=== PATIENT | female | born 1950 | race Caucasian/White ===

== ENCOUNTER 2025-02-02 02:24 | Inpatient (IN) | payer OTHER ==
[~2025-02-02] VITALS: Ht 157.5 cm; Wt 48.5 kg
[2025-02-02] VITALS (54 sets, daily range): BP systolic 72–143; BP diastolic 37–104; TEMP 97.1–99; O2SAT 95–98
[2025-02-02] MEDS: IV NS 0.9% 1,000 ML BAG IV ONE (04:05)
[2025-02-02 04:16] LABS: BASOPHILS % (AUTO) 0.4 % (0.0-2.0); EOSINOPHILS % (AUTO) 0.1 % (0.0-6.0); HEMATOCRIT 30 % (33-45); HEMOGLOBIN 9.9 g/dL (11.5-14.8); LYMPHOCYTES # (AUTO) 0.5 K/uL (0.8-4.8); LYMPHOCYTES % (AUTO) 4.2 % (20.0-44.0); MEAN CORPUSCULAR HEMOGLOBIN 31 PG (26.0-33.0); MEAN CORPUSCULAR HGB CONC 34 g/dl (31.0-36.0); MEAN CORPUSCULAR VOLUME 93 fL (82-100); MONOCYTES # (AUTO) 0.6 K/uL (0.1-1.30); MONOCYTES % (AUTO) 5.4 % (2.0-12.0); NEUTROPHILS # (AUTO) 10.7 K/uL (1.8-8.9); NEUTROPHILS % (AUTO) 89.9 % (43.0-81.0); PLATELET COUNT (AUTO) 126 K/uL (150-450); RED BLOOD CELL COUNT(AUTO) 3.19 MIL/uL (4.0-5.2); RED CELL DISTRIBUTION WIDTH 15.9 % (11.5-15.0); WHITE BLOOD COUNT (AUTO) 11.9 K/uL (4.3-11.0)
[2025-02-02 04:23] LABS: INR 1.13 (0.91-1.10); PARTIAL THROMBOPLASTIN TIME 36.4 SEC (24.3-34.3); PROTHROMBIN TIME 11.9 SECS (9.2-11.1)
[2025-02-02 04:24] LABS: CALCIUM, SERUM 8.8 mg/dL (8.5-10.1); CARBON DIOXIDE 18 mmol/L (21-32); CHLORIDE 104 mmol/L (98-107); CREATININE 1.5 mg/dL (0.6-1.3); GLUCOSE 157 mg/dL (74-106); POTASSIUM 3.8 mmol/L (3.5-5.1); SODIUM SERUM 135 mmol/L (136-145); UREA NITROGEN, BLOOD 75 mg/dL (7-18)
[2025-02-02 04:26] LABS: ALANINE AMINOTRANSFERASE 83 U/L (12-78); ALBUMIN 3.1 g/dL (3.4-5.0); ALKALINE PHOSPHATASE 250 U/L (46-116); ASPARTATE AMINOTRANSFERASE 98 U/L (15-37); BILIRUBIN,DIRECT 0.3 mg/dL (0.0-0.2); BILIRUBIN,TOTAL 0.7 mg/dL (0.2-1.0); TOTAL PROTEIN, SERUM 6.7 g/dL (6.4-8.2)
[2025-02-02 04:28] LABS: LACTIC ACID 0.6 mmol/L (0.4-2.0)
[2025-02-02 05:06] LABS: APPEARANCE,URINE SLIGHTLY CLOUDY (CLEAR); BILIRUBIN,URINE NEGATIVE (NEGATIVE); BLOOD, URINE 1+ Ery/uL (NEGATIVE); COLOR,URINE YELLOW (YELLOW); KETONES,URINE NEGATIVE (NEGATIVE); LEUKOCYTE ESTERASE ,URINE 2+ (NEGATIVE); NITRITE, URINE POSITIVE (NEGATIVE); PH,URINE 5.5 (5.0-8.0); PROTEIN,URINE 1+ mg/dl (NEGATIVE); UGLUCOSE NEGATIVE (NEGATIVE); UROBILINOGEN,URINE 0.2 EU/dL (0.2)
[2025-02-02 05:44] LABS: RBC,URINE 0-2 /HPF (0-2)
[2025-02-02 05:45] LABS: ADD URINE CULTURE YES; BACTERIA,URINE Many /HPF (None Seen); SQUAMOUS EPITHELIAL CELL,UR Rare /HPF (None Seen); WBC,URINE TOO NUMEROUS TO COUN /HPF (0-3); YEAST,URINE None Seen /HPF (None Seen)
[2025-02-02] MEDS: IV NS 0.9% 1,000 ML IV ONE (05:51)
[2025-02-02] MEDS ORDERED: PIPERACI/TAZO 3.375GM/D5W 50ML PB IV ONE (05:55)
[2025-02-02] MEDS ORDERED: ACETAMINOPHEN 325 MG TABLET ONE (05:55)
[2025-02-02] MEDS: PIPERACILLIN /TAZOBACTAM 3.375 G in IV D5W 50 ML IV ONE (06:05)
[2025-02-02] MEDS: ACETAMINOPHEN 325 MG TABLET PO ONE (06:06)
[2025-02-02] MEDS ORDERED: NOREPINEPHRINE 8MG/250ML RTU 250 ML IV ONE (07:10)
[2025-02-02] MEDS: NOREPINEPHRINE 8 MG in IV D5W 242 ML IV PRN (07:26)
[2025-02-02] MEDS ORDERED: ONDANSETRON HCL/PF 4 MG/2 ML VIAL IVP PRN (08:30)
[2025-02-02] MEDS ORDERED: NOREPINEPHRINE 8 MG in IV D5W 242 ML IV PRN (08:30)
[2025-02-02] MEDS ORDERED: MAGNESIUM HYDROXIDE 30 ML UDC PO PRN (08:30)
[2025-02-02] MEDS ORDERED: Z GUARD REMEDY 4 OZ OINT TP PRN (08:30)
[2025-02-02] MEDS ORDERED: MAG HYDROX/AL HYDROX/SIMETH 30 ML UDC PO PRN (08:30)
[2025-02-02] MEDS ORDERED: PHENYLEPHRINE 50 MG in IV NS 0.9% 245 ML IV PRN (09:00)
[2025-02-02] MEDS ORDERED: ACETAMINOPHEN 325 MG TABLET PO PRN (09:00)
[2025-02-02] MEDS: IV NS 0.9% 1,000 ML IV PRN (09:03)
[2025-02-02] MEDS: ACETAMINOPHEN 325 MG TABLET PO PRN (09:03)
[2025-02-02] MEDS ORDERED: LATA2.5D15 EACHEYE (09:08)
[2025-02-02] MEDS ORDERED: MULT-447 PO (09:08)
[2025-02-02] MEDS ORDERED: FERR-68 PO (09:08)
[2025-02-02] MEDS ORDERED: ASPI-1169 PO (09:08)
[2025-02-02] MEDS ORDERED: LEVO5DRO6 EACHEYE (09:08)
[2025-02-02] MEDS ORDERED: ALEN70TA80 PO (09:08)
[2025-02-02] MEDS ORDERED: AZEL137S7 BNOSTRILS (09:08)
[2025-02-02] MEDS ORDERED: CALC500T89 PO (09:08)
[2025-02-02] MEDS ORDERED: ATOR40TA PO (09:08)
[2025-02-02] MEDS ORDERED: SERT100T12 PO (09:08)
[2025-02-02] MEDS ORDERED: CALC3.7S NS (09:08)
[2025-02-02 09:32] LABS: ABG BASE EXCESS -11.1 mmol/L (-2.0-3.0); ABG OXYGEN SATURATION 97.3 % (94.0-98.0); ABG PCO2 17.1 mmHg (32.0-45.0); ABG PH 7.446 (7.350-7.450); ABG PO2 94.9 mmHg (83.0-108.0); ABG TOTAL HEMOGLOBIN 7.8 G/dL (12.0-16.0); COHb 0.3 % (0.5-1.5); MetHb 0.5 % (0.0-1.5); O2Hb 96.5 % (94.0-97.0); SITE, ABG RIGHT RADIAL
[2025-02-02] MEDS ORDERED: CALCITONIN,SALMON,SYNTHETIC 3.7 ML SPRAY.PUMP NS PRN (10:30)
[2025-02-02] MEDS ORDERED: CT SWABBABLE VALVE TRANS SET 1 EA INFUS.SET MC ONE (10:40)
[2025-02-02] MEDS ORDERED: IV NS 0.9% 0 ML IV ONE (10:40)
[2025-02-02] MEDS ORDERED: IOHEXOL-350 100 ML VIAL IV ONE (10:40)
[2025-02-02] MEDS: ACETAMINOPHEN 650 MG/SUPP.RECT RC ONE (11:00)
[2025-02-02] MEDS: HYDROCORTISONE SOD SUCCINATE 100 MG/2 ML VIAL IV SCH (11:17)
[2025-02-02] MEDS: HEPARIN SODIUM, PORCINE 5000 UNITS/1 ML VIAL SQ SCH (11:19)
[2025-02-02] MEDS: PIPERACILLIN /TAZOBACTAM 2.25 G in IV D5W 50 ML IV SCH (12:17)
[2025-02-02] MEDS: PHENYLEPHRINE 50 MG in IV NS 0.9% 245 ML IV PRN (12:34)
[2025-02-02] MEDS: ASPIRIN 81 MG TAB.CHEW PO SCH (18:37)
[2025-02-02] MEDS: LATANOPROST EYE DROP 0.005% 2.5 ML BOTTLE EACHEYE SCH (21:12)
[2025-02-03] VITALS (32 sets, daily range): BP systolic 118–155; BP diastolic 61–101; TEMP 97.1–98; O2SAT 96–98
[2025-02-03 04:15] LABS: BASOPHILS % (AUTO) 0.1 % (0.0-2.0); EOSINOPHILS % (AUTO) 0.2 % (0.0-6.0); HEMATOCRIT 27 % (33-45); HEMOGLOBIN 8.8 g/dL (11.5-14.8); LYMPHOCYTES # (AUTO) 0.3 K/uL (0.8-4.8); LYMPHOCYTES % (AUTO) 2.2 % (20.0-44.0); MEAN CORPUSCULAR HEMOGLOBIN 31 PG (26.0-33.0); MEAN CORPUSCULAR HGB CONC 33 g/dl (31.0-36.0); MEAN CORPUSCULAR VOLUME 94 fL (82-100); MONOCYTES # (AUTO) 0.4 K/uL (0.1-1.30); MONOCYTES % (AUTO) 2.8 % (2.0-12.0); NEUTROPHILS # (AUTO) 11.8 K/uL (1.8-8.9); NEUTROPHILS % (AUTO) 94.7 % (43.0-81.0); PLATELET COUNT (AUTO) 86 K/uL (150-450); RED BLOOD CELL COUNT(AUTO) 2.84 MIL/uL (4.0-5.2); RED CELL DISTRIBUTION WIDTH 16.7 % (11.5-15.0); WHITE BLOOD COUNT (AUTO) 12.4 K/uL (4.3-11.0)
[2025-02-03 04:29] LABS: ALBUMIN 2.2 g/dL (3.4-5.0); BILIRUBIN,TOTAL 1.7 mg/dL (0.2-1.0); CALCIUM, SERUM 7.5 mg/dL (8.5-10.1); CREATININE 1.4 mg/dL (0.6-1.3); MAGNESIUM 1.8 mg/dL (1.8-2.4); PHOSPHORUS 3.7 mg/dL (2.5-4.9); POTASSIUM 3.8 mmol/L (3.5-5.1); TOTAL PROTEIN, SERUM 5.9 g/dL (6.4-8.2)
[2025-02-03 04:32] LABS: LACTIC ACID 0.9 mmol/L (0.4-2.0)
[2025-02-03 04:45] LABS: BAND % (MANUAL) 4 % (0.0-5.0); BASOPHILS % (MANUAL) 0 % (0.0-2.0); EOSINOPHILS % (MANUAL) 0 % (0-4); LYMPHOCYTES % (MANUAL) 5 % (16-48); MONOCYTES % (MANUAL) 2 % (0-11.0); NEUTROPHILS % (MANUAL) 89 (42-76)
[2025-02-03 04:46] LABS: ANISOCYTOSIS 1+; PLATELET ESTIMATE DECREASED
[2025-02-03] MEDS: SERTRALINE HCL 50 MG TABLET PO SCH (08:23)
[2025-02-03] MEDS: MULTIVIT W/MINERALS 1 TAB TABLET PO SCH (08:23)
[2025-02-03] MEDS: FERROUS SULFATE (325 MG) 325 MG/TAB TABLET PO SCH (08:23)
[2025-02-03] MEDS: CALCIUM CARBONATE (1250) 500 MG TABLET PO SCH (08:23)
[2025-02-03] MEDS ORDERED: LEVOBUNOLOL HCL 0.5% EACHEYE SCH (09:00)
[2025-02-03] MEDS: PIPERACILLIN /TAZOBACTAM 3.375 G in IV D5W 100 ML IV SCH (12:51)
[2025-02-03] MEDS ORDERED: CLONIDINE HCL 0.1 MG TABLET PO ONE ×2 (19:00)
== END 2025-02-03 19:00 | disposition short-term general hospital (02) | DRG 871 ==
LOC: ER 02:38 → TELE1 10:21 → TELE-TD 10:28 → ICU 10:51 → TELE1 02-03 13:09
PROVIDERS: ADMIT Nurse Practitioner Acute Care; ATTEND Nurse Practitioner Acute Care
PROC: 05HC33Z Insertion of Infusion Device into Left Basilic Vein, Percutaneous Approach (ICD-10-PCS; principal; 2025-02-02)
DX: A41.50 Gram-negative sepsis, unspecified (principal); J96.01 Acute respiratory failure with hypoxia; N17.0 Acute kidney failure with tubular necrosis; R65.21 Severe sepsis with septic shock; E44.0 Moderate protein-calorie malnutrition; N10 Acute pyelonephritis; E86.0 Dehydration; E88.09 Other disorders of plasma-protein metabolism, not elsewhere classified; R74.01 Elevation of levels of liver transaminase levels; Z98.890 Other specified postprocedural states; D63.8 Anemia in other chronic diseases classified elsewhere; Z88.5 Allergy status to narcotic agent; J45.909 Unspecified asthma, uncomplicated; I10 Essential (primary) hypertension; M89.8X9 Other specified disorders of bone, unspecified site; Z86.718 Personal history of other venous thrombosis and embolism
CPT/HCPCS: 36415; 36600; 71045-TC; 76770-TC; 80048-TC; 80053-TC; 80076-TC; 81001; 82803-TC; 83605-TC; 83735-TC; 83880; 83970; 84100-TC; 84484-TC; 85025-TC; 85378-TC; 85730-TC; 87040-TC; 87081-TC; 87086-TC; 87186-TC; 93307-TC; 93970-TC; A4223; G0378; J1644; J1720; J2543; J7030; J7050; J7060; Q9967